=== PATIENT | female | born 1950 | race Caucasian/White ===

== ENCOUNTER → 2017-05-04 | Outpatient (CLI) | payer OTHER | LOC: SLEEPLAB 08:06 | DX: G47.33 Obstructive sleep apnea (adult) (pediatric) (principal) ==

== ENCOUNTER → 2017-05-11 | Outpatient (CLI) | payer OTHER ==
--- NOTE | ~2017-05-11 | 2DMMODE ---
[facility] [place] [address] 2 D/M-MODE ECHOCARDIOGRAM Name: XU CHEEK Room #: REG [facility]#: [id number] Admission: 05/11/17 Attend Phys: Vasu Gannon MD Discharge: Date of : 50 Date of Service: 05/11/17 1527 Report #: [id number] THIS REPORT FOR: //name// APPROVED REPORT Study performed: 05/11/2017 14:12:33 EXAM: Comprehensive 2D, Doppler, and color-flow Echocardiogram Patient Location: Out-Patient Status: routine BSA: 1.60 HR: 61 bpm BP: 197/104 mmHg Other Information Study Quality: Good Indications Chest Pain 2D Dimensions RVDd: 26.13 mm LVEF(%): 62.67 (>50%) IVSd: 10.62 (7-11mm) LVOT Diam: 18.98 (18-24mm) LVDd: 39.10 mm PWd: 11.47 (7-11mm) Ascending Ao: 27.01 (22-36mm) LVDs: 26.06 (25-40mm) Aortic Root: 26.27 mm IVC: 1.80 mm Arroyo's LVEF: 62.67 % Volumes Left Atrial Volume (Systole) Single Plane 4CH: 40.16 mL Single Plane 2CH: 36.75 mL LA ESV Index: 26.00 mL/m2 Aortic Valve AoV Peak Lisandro.: 1.25 m/s AO Peak Gr.: 6.20 mmHg LVOT Max P.10 mmHg LVOT Max V: 1.01 m/s TAVARES Vmax: 2.30 cm2 Mitral Valve E/A Ratio: 0.7 MV Decel. Time: 215.84 ms MV E Max Lisandro.: 0.73 m/s [facility] [place] [address] 2 D/M-MODE ECHOCARDIOGRAM Name: HAMXU MASON Room #: REG [facility].#: [id number] Admission: 05/11/17 Attend Phys: Vasu Gannon MD Discharge: Date of : 50 Date of Service: 05/11/17 1527 Report #: [id number] MV A Lisandro.: 1.01 m/s MV PHT: 62.59 ms IVRT: 106.11 ms Pulmonary Valve PV Peak Lisandro.: 0.90 m/s PV Peak Gr.: 3.27 mmHg Pulmonary Vein P Vein S: 0.75 m/s P Vein A: 0.35 m/s P Vein D: 0.42 m/s P Vein A Dur.: 147.6 msec P Vein S/D Ratio: 1.79 Tricuspid Valve TR Peak Lisandro.: 2.69 m/s RAP Estimate: 5.00 mmHg TR Peak Gr.: 29.01 mmHg PA Pressure: 34.00 mmHg Left Ventricle The left ventricle is normal size. There is normal LV segmental wall motion. Borderline concentric left ventricular hypertrophy. The left ventricular systolic function is normal. The left ventricular ejection fraction is within the normal range. LVEF is 60-65%. Grade I - abnormal relaxation pattern. Right Ventricle The right ventricle is normal size. The right ventricular systolic function is normal. Atria The left atrium size is normal. The right atrium size is normal. Aortic Valve Aortic valve is calcified. No aortic regurgitation is present. There is no aortic valvular stenosis. Mitral Valve Mitral valve leaflets are thickened. Trace mitral regurgitation. No evidence of mitral valve stenosis. Tricuspid Valve The tricuspid valve is normal in structure. There is trace tricuspid regurgitation. The right atrial pressure is estimated at 5 mmHg. There is mild pulmonary hypertension with an estimated PAP of [address] [address] 2 D/M-MODE ECHOCARDIOGRAM Name: XU CHEEK Room #: REG CL [facility]#: [id number] Admission: 05/11/17 Attend Phys: Vasu Gannon MD Discharge: Date of : 50 Date of Service: 05/11/17 1527 Report #: [id number] Pulmonic Valve The pulmonary valve is normal in structure. Trace pulmonic regurgitation. Great Vessels The aortic root is normal in size. The ascending aorta is normal in size. IVC is normal in size and collapses >50% with inspiration. Pericardium There is no pericardial effusion. <Conclusion> The left ventricle is normal size. LVEF is 60-65%. Aortic valve is calcified. Mitral valve leaflets are thickened. Trace mitral regurgitation. The tricuspid valve is normal in structure. There is trace tricuspid regurgitation. The right atrial pressure is estimated at 5 mmHg. There is mild pulmonary hypertension with an estimated PAP of 34 mmHg. <ELECTRONICALLY SIGNED> By: Chirstopher Coto MD 05/11/17 1527 1527 1527 Christopher Coto MD /INF
== END ==
LOC: CV 07:15
DX: I27.2 Other secondary pulmonary hypertension (principal)

== ENCOUNTER → 2017-05-18 | Outpatient (CLI) | payer OTHER | LOC: NUC 07:26 | DX: R07.9 Chest pain, unspecified (principal) ==

== ENCOUNTER → 2017-06-02 | Outpatient (CLI) | payer OTHER | LOC: CAT 12:50 | DX: Z13.6 Encounter for screening for cardiovascular disorders (principal) ==

== ENCOUNTER → 2017-06-16 | Outpatient (CLI) | payer OTHER ==
[~2017-06-16] VITALS: Ht 152.4 cm; Wt 65.8 kg
[~2017-06-16] MED LIST: DILTIAZEM ER180 M1 PO; EDARBI80 MG PO; SYNTHROID25 MCG PO
--- NOTE | ~2017-06-16 | CATHLAB ---
[facility] [place] [employer] [place] [address] INVASIVE PROCEDURE REPORT Name: XU CHEEK Room #: REG [facility]#: [id number] Admission: 06/16/17 Attend Phys: Vasu Gannon MD Discharge: Date of : 50 Date of Service: 06/16/17 1431 Report #: [id number] THIS REPORT FOR: //name// APPROVED REPORT Patient Details Patient Status: Out-Patient Room #: The patient is a 67 year-old female Event Personnel Vasu Gannon Clinical Rn Liaison, Arturo Gonzalez RN, Sarah Beth Walden RN, RN, Yessy Jackson Sandifer, David Monitor Procedures Performed Left Heart Cath w/or w/o Coronaries [id number] [facility] Indication Dyspnea, Chest pain Risk Factors Hypercholesterolemia, Hypertension Procedure Narrative The Right Groin^ was infiltrated with 1% Lidocaine subcutaneous anesthesia. A PINNACLE 4FR Sheath #[id number] sheath was inserted into the RFA^. Coronary angiography was performed using coronary diagnostic catheters. The right coronary system was accessed and visualized with a JR4 catheter. The left coronary system was accessed and visualized with a JL4 catheter. The left ventricle was accessed and visualized with a PIGTAIL catheter. Left ventricular/Aortic Valve gradient assessed via catheter pullback. Left ventriculogram was performed in 30 degree projection. Hemostasis was obtained with manual pressure following sheath removal without any complications. The patient tolerated the procedure well and there were no complications associated with the procedure. There was no hematoma. Intraoperative Conscious Sedation Sedation start time: 9:13 Case end Time: 9:35 Fentanyl 25.0 mcg Versed 1.0 mg Fluoro Time: 2.13 minutes Dose: 343 mGy [facility] [address] [place] [address] INVASIVE PROCEDURE REPORT Name: XU CHEEK Room #: REG CL [facility]#: [id number] Admission: 06/16/17 Attend Phys: Vasu Gannon MD Discharge: Date of : 50 Date of Service: 06/16/17 1431 Report #: [id number] Contrast Type and Amount: Omnipaque 145 ml Coronary Angiography The patient's coronary anatomy is right dominant. Diagnostic Cath Left Main Patent vessel, no flow limiting lesions. LAD Calcified in the proximal segment. 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 Starting from the aneurysm, there is a long moderate to severe stenosis in the LAD, 60-70%. At the mid/distal junction, there is a discrete stenosis of 60%. Diagonal 1 Patent vessel originating from the proximal LAD at the site of the aneurysm, with no flow limiting lesions. Circumflex Moderate size caliber vessel, mild disease proximally, 30%. OM1 Moderate size caliber vessel, with a moderate stenosis at the ostium, 40-50% OM2 Patent vessel, no flow limiting lesions Right Coronary Mild to moderate disease in the proximal and distal segments, 30-40%. R PDA Small-caliber vessel with an ostial moderate stenosis, 50% Left Ventriculography The left ventricle is normal in size with normal contractility. The left ventricular ejection fraction is estimated to be 55-60%. Hemodynamics The aortic pressure is 159/74 mmHg with a mean of 105 mmHg. The left ventricular pressure is 149/10 mmHg with a mean of mmHg. The left ventricular end diastolic pressure is 20 mmHg. There was no gradient across the aortic valve upon pullback. Pullback from the left ventricle to the aorta revealed no gradient across the aortic valve. Conclusion 1. 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 2. Moderate to severe disease in the LAD. 3. Mild to moderate disease in the left circumflex artery and RCA. 4. Normal LV systolic function. 5. Recommend surgery versus medical therapy. [facility] [address] [place] [address] INVASIVE PROCEDURE REPORT Name: XU CHEEK Room #: REG [facility]#: [id number] Admission: 06/16/17 Attend Phys: Vasu Gannon MD Discharge: Date of : 50 Date of Service: 06/16/17 1431 Report #: [id number] Recommendations Medical Therapy <ELECTRONICALLY SIGNED> By: Vasu Gannon MD 06/16/17 1431 30 30 Vasu Gannon MD /XIOMARA
--- NOTE | ~2017-06-16 | EKG ---
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
[2017-06-16 08:36] LABS: HEMATOCRIT 46.1 % (37.0-47.0); HEMOGLOBIN 15.2 gm/dL (12.0-15.0); MCHC 32.9 g/dL (28.0-37.0); RBC 5.23 mil/uL (4.20-5.00); RDW 13.8 % (10.5-14.5); WBC 7.6 thou/uL (4.0-11.0)
[2017-06-16 08:39] VITALS: BP 151/81
[2017-06-16 08:51] LABS: CALCIUM 9.6 mg/dL (8.5-10.1); CREATININE 0.8 mg/dL (0.6-1.0); POTASSIUM 3.6 mmol/L (3.5-5.1)
== END | disposition home or self-care (01) ==
LOC: CATH 08:00
PROVIDERS: Internal Medicine Cardiovascular Disease
DX: I25.10 Atherosclerotic heart disease of native coronary artery without angina pectoris (principal); I25.41 Coronary artery aneurysm; I10 Essential (primary) hypertension; E78.00 Pure hypercholesterolemia, unspecified; E03.9 Hypothyroidism, unspecified; K21.9 Gastro-esophageal reflux disease without esophagitis; M19.90 Unspecified osteoarthritis, unspecified site; G47.33 Obstructive sleep apnea (adult) (pediatric); Z90.49 Acquired absence of other specified parts of digestive tract; Z90.710 Acquired absence of both cervix and uterus; Z98.890 Other specified postprocedural states; Z79.899 Other long term (current) drug therapy; Z87.891 Personal history of nicotine dependence; Z88.0 Allergy status to penicillin; Z88.2 Allergy status to sulfonamides; Z88.6 Allergy status to analgesic agent; Z88.8 Allergy status to other drugs, medicaments and biological substances

== ENCOUNTER → 2017-08-04 | Outpatient (CLI) | payer OTHER ==
[~2017-08-04] MED LIST changes: +ASPIR 8181 MG PO; +ASPIRIN325 PO; +DILTIAZEM 24HR240 M2 PO; +HYDROCODONE-AP1 EAC6 PO; +LOPRESSOR50 PO; +VITAMIN D350000 UNIT PO
== END ==
LOC: RAD 08:00
DX: J90 Pleural effusion, not elsewhere classified (principal); I25.10 Atherosclerotic heart disease of native coronary artery without angina pectoris

== ENCOUNTER 2017-09-21 14:57 | Emergency (ER) | payer OTHER ==
[~2017-09-21] VITALS: Ht 160 cm; Wt 72.6 kg
--- NOTE | ~2017-09-21 | EKG ---
[facility] [place] [address] ELECTROCARDIOGRAM REPORT Name: XU CHEEK [id number] Admission: 09/21/17 Attend Phys: Discharge: Date of : 50 Report #: [id number] THIS REPORT FOR: //name// 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 : 1950 Requested By: Diogenes Sorto Order Number: [id number] MD: Jeremias Parkinson Measurements Intervals [place] Rate: 60 P: 8 MA: 133 QRS: 16 QRSD: 103 T: 107 QT: 408 QTc: 408 Interpretive Statements Sinus rhythm Probable left ventricular hypertrophy Inferior infarct, old Lateral leads are also involved Baseline wander in lead(s) V5 Compared to ECG 07/14/2017 06:08:22 Myocardial infarct finding now present T-wave abnormality no longer present Electronically Signed On 09-21-2017 16:48:01 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
[2017-09-21 15:44] LABS: ABSOLUTE NEUTROPHILS 4.3 thou/uL (1.4-8.2); BASOPHILS 1.4 % (0.0-2.0); EOSINOPHILS 1.6 % (0.0-3.0); HEMATOCRIT 44.3 % (37.0-47.0); HEMOGLOBIN 14.7 gm/dL (12.0-15.0); MCH 28.6 pg (26.0-34.0); MCHC 33.3 g/dL (28.0-37.0); MONOCYTES 5.6 % (1.0-8.0); PLATELET COUNT 219 thou/uL (150-400); POLYS 54.4 % (36.0-66.0); RBC 5.15 mil/uL (4.20-5.00); RDW 14.3 % (10.5-14.5); WBC 7.9 thou/uL (4.0-11.0)
[2017-09-21 15:47] LABS: ANION GAP 10 mmol/L (7-16); BUN 13 mg/dL (7-18); CALCIUM 9.9 mg/dL (8.5-10.1); CHLORIDE 105 mmol/L (98-107); CO2 25 mmol/L (21-32); CREATININE 0.8 mg/dL (0.6-1.0); GLUCOSE 97 mg/dL (74-106); SODIUM 140 mmol/L (136-145)
[2017-09-21 15:56] LABS: TROPONIN-I < 0.04 ng/mL (<0.06)
[2017-09-21] MEDS ORDERED: CARVEDILOL6.25 MG (17:41)
[2017-09-21 17:43] VITALS: BP 182/89
== END 2017-09-21 17:44 | disposition home or self-care (01) ==
LOC: ER 14:57
PROVIDERS: Emergency Medicine
DX: I10 Essential (primary) hypertension (principal); K21.9 Gastro-esophageal reflux disease without esophagitis; E03.9 Hypothyroidism, unspecified; F32.9 Major depressive disorder, single episode, unspecified; F41.9 Anxiety disorder, unspecified; M19.90 Unspecified osteoarthritis, unspecified site; Z98.890 Other specified postprocedural states; Z90.710 Acquired absence of both cervix and uterus; Z88.0 Allergy status to penicillin; Z88.1 Allergy status to other antibiotic agents; Z88.5 Allergy status to narcotic agent; Z88.2 Allergy status to sulfonamides; Z88.8 Allergy status to other drugs, medicaments and biological substances

== ENCOUNTER → 2017-11-29 | Outpatient (CLI) | payer OTHER ==
[~2017-11-29] MED LIST changes: +CARVEDILOL6.25 MG
--- NOTE | ~2017-11-29 | 2DMMODE ---
[facility] [place] [place] [address] 2 D/M-MODE ECHOCARDIOGRAM Name: XU CHEEK Room #: REG [facility]#: [id number] Admission: 11/29/17 Attend Phys: Vasu Gannon MD Discharge: Date of : 50 Date of Service: 11/29/17 1430 Report #: [id number] THIS REPORT FOR: //name// APPROVED REPORT Study performed: 11/29/2017 13:28:49 EXAM: Comprehensive 2D, Doppler, and color-flow Echocardiogram Patient Location: Out-Patient Room #: Echo lab Status: routine BSA: 1.65 HR: 59 bpm BP: 142/92 mmHg Other Information Study Quality: Good Indications CAD Hypertension/HDD 2D Dimensions RVDd: 39.40 mm LVEF(%): 65.26 (>50%) IVSd: 10.54 (7-11mm) LVOT Diam: 19.45 (18-24mm) LVDd: 37.89 mm PWd: 11.13 (7-11mm) Ascending Ao: 22.86 (22-36mm) LVDs: 24.57 (25-40mm) Aortic Root: 26.46 mm IVC: 15.00 mm Arroyo's LVEF: 65.26 % Volumes Left Atrial Volume (Systole) Single Plane 4CH: 50.08 mL Single Plane 2CH: 41.29 mL LA ESV Index: 30.00 mL/m2 Aortic Valve AoV Peak Lisandro.: 1.20 m/s AO Peak Gr.: 5.74 mmHg LVOT Max P.23 mmHg LVOT Max V: 0.90 m/s TAVARES Vmax: 2.23 cm2 Mitral Valve E/A Ratio: 1.1 MV Decel. Time: 203.25 ms [facility] [place] [address] 2 D/M-MODE ECHOCARDIOGRAM Name: XU CHEEK Room #: [facility]#: [id number] Admission: 11/29/17 Attend Phys: Vasu Gannon MD Discharge: Date of : 50 Date of Service: 11/29/17 1430 Report #: [id number] MV E Max Lisandro.: 0.83 m/s MV A Lisandro.: 0.79 m/s MV PHT: 58.94 ms IVRT: 143.02 ms Pulmonary Valve PV Peak Lisandro.: 0.73 m/s PV Peak Gr.: 2.12 mmHg Pulmonary Vein P Vein S: 0.73 m/s P Vein A: 0.18 m/s P Vein D: 0.51 m/s P Vein A Dur.: 106.1 msec P Vein S/D Ratio: 1.43 Tricuspid Valve TR Peak Lisandro.: 2.59 m/s TR Peak Gr.: 26.75 mmHg PA Pressure: 32.00 mmHg Left Ventricle The left ventricle is normal size. There is normal LV segmental wall motion. Borderline concentric left ventricular hypertrophy. The left ventricular systolic function is normal. The left ventricular ejection fraction is within the normal range. LVEF is 60-65%. Right Ventricle The right ventricle is normal size. The right ventricular systolic function is normal. Atria The left atrium size is normal. The right atrium size is normal. Aortic Valve The aortic valve is normal in structure. No aortic regurgitation is present. There is no aortic valvular stenosis. Mitral Valve The mitral valve is normal in structure. Mild mitral regurgitation. No evidence of mitral valve stenosis. Tricuspid Valve The tricuspid valve is normal in structure. There is mild tricuspid regurgitation. Estimated PAP 32 mmHg. There is mild pulmonary hypertension. Pulmonic Valve [address] [address] 2 D/M-MODE ECHOCARDIOGRAM Name: XU CHEEK Room #: REG CL [facility]#: [id number] Admission: 11/29/17 Attend Phys: Vasu Gannon MD Discharge: Date of : 50 Date of Service: 11/29/17 1430 Report #: [id number] The pulmonary valve is normal in structure. Trace pulmonic regurgitation. Great Vessels The aortic root is normal in size. IVC is normal in size and collapses >50% with inspiration. Pericardium There is no pericardial effusion. <Conclusion> The left ventricle is normal size. The left ventricular systolic function is normal. The right ventricle is normal size. The left atrium size is normal. The aortic valve is normal in structure. Mild mitral regurgitation. There is mild tricuspid regurgitation. Estimated PAP 32 mmHg. <ELECTRONICALLY SIGNED> By: Vasu Gannon MD 11/29/17 1430 1430 1430 Vasu Gannon MD /INF
== END ==
LOC: CV 08:14
DX: I08.1 Rheumatic disorders of both mitral and tricuspid valves (principal); I25.10 Atherosclerotic heart disease of native coronary artery without angina pectoris; I10 Essential (primary) hypertension

== ENCOUNTER → 2017-12-06 | Outpatient (CLI) | payer OTHER | LOC: RAD 08:40 | DX: L03.313 Cellulitis of chest wall (principal) ==

== ENCOUNTER → 2018-12-12 | Outpatient (CLI) | payer OTHER | LOC: NUC 11:37 | DX: I10 Essential (primary) hypertension (principal); E78.5 Hyperlipidemia, unspecified; Z87.891 Personal history of nicotine dependence; Z88.0 Allergy status to penicillin; Z88.8 Allergy status to other drugs, medicaments and biological substances; Z88.2 Allergy status to sulfonamides; Z88.5 Allergy status to narcotic agent ==

== ENCOUNTER → 2019-02-28 | Outpatient (CLI) | payer OTHER | LOC: CAT 01-31 09:32 | DX: J84.10 Pulmonary fibrosis, unspecified (principal); J98.11 Atelectasis; I25.10 Atherosclerotic heart disease of native coronary artery without angina pectoris; I70.0 Atherosclerosis of aorta; N28.1 Cyst of kidney, acquired; D73.89 Other diseases of spleen; G89.18 Other acute postprocedural pain ==

== ENCOUNTER → 2020-09-10 | Outpatient (CLI) | payer OTHER | LOC: SJCVCIMAG 09-04 14:37 | PROVIDERS: ATTEND Internal Medicine Cardiovascular Disease | DX: I08.1 Rheumatic disorders of both mitral and tricuspid valves (principal); R00.0 Tachycardia, unspecified; I49.3 Ventricular premature depolarization; I25.10 Atherosclerotic heart disease of native coronary artery without angina pectoris; I10 Essential (primary) hypertension; E78.00 Pure hypercholesterolemia, unspecified; M19.90 Unspecified osteoarthritis, unspecified site; E03.9 Hypothyroidism, unspecified; E78.5 Hyperlipidemia, unspecified; G47.33 Obstructive sleep apnea (adult) (pediatric); Z95.1 Presence of aortocoronary bypass graft; Z79.82 Long term (current) use of aspirin; Z79.899 Other long term (current) drug therapy; Z87.891 Personal history of nicotine dependence ==

== ENCOUNTER → 2020-11-06 | Outpatient (CLI) | payer MEDICARE | LOC: SJCVC 13:20 | PROVIDERS: ATTEND Internal Medicine Cardiovascular Disease | DX: R94.31 Abnormal electrocardiogram [ECG] [EKG] (principal); R00.1 Bradycardia, unspecified; I10 Essential (primary) hypertension; I25.10 Atherosclerotic heart disease of native coronary artery without angina pectoris; E78.00 Pure hypercholesterolemia, unspecified; R60.9 Edema, unspecified; M19.90 Unspecified osteoarthritis, unspecified site; G47.33 Obstructive sleep apnea (adult) (pediatric); Z95.1 Presence of aortocoronary bypass graft; Z90.49 Acquired absence of other specified parts of digestive tract; Z90.710 Acquired absence of both cervix and uterus; Z98.890 Other specified postprocedural states; Z88.8 Allergy status to other drugs, medicaments and biological substances; Z79.82 Long term (current) use of aspirin; Z79.899 Other long term (current) drug therapy; Z87.891 Personal history of nicotine dependence; Z82.49 Family history of ischemic heart disease and other diseases of the circulatory system ==